=== PATIENT | female | born 1965 | race African-American/Black ===

== ENCOUNTER → 2016-08-28 | Outpatient (CLI) | payer BC ==
[~2016-08-28] MED LIST: DYAZIDE 37.5/251 CAP PO; METFORMIN PO; PRENATAL FORMU1 EAC1 PO; TIROSINT88 MCG PO
--- NOTE | ~2016-08-28 | MR17 ---
[facility] A Service of [facility] RADIOLOGY TEXT RESULTS PATIENT: GEORGIE VUONG LOCATION: [facility] : 63 UNIT #: [id number] AGE: [address]: Magno Whelan II, MD SEX: F ORDER DR: [id number] [facility] [address] [place], [place] [address] [id number] O MR#: [id number] Acc #: [id number] NAME: GEORGIE VUONG : 1965 SEX: F STUDY DATE/TIME: 08/28/2016 10:52 UNIT: [facility] ROOM: STUDY DESCRIPTION: MR Brain WWo Contrast Attending Physician: Magno Whelan II., M.D. Referring Physician: Magno Whelan II., M.D. Ordering Physician: Magno Whelan II., M.D. Primary Care Physician: No Primary Care Physician MRI CENTER REPORT This report is preliminary unless electronic signature is present. EXAM Brain MR with and without contrast, 08/28/16. CLINICAL HISTORY Four-month history of intermittent spells of decreased attentiveness. PROCEDURE Routine brain MR with and without contrast. COMPARISON None. FINDINGS The brain is structurally normal. Brain parenchymal signal is normal with the exception of some minimal nonspecific white matter change. There is no intracranial mass and there is no hydrocephalus or extraaxial fluid collection. Normal flow voids are seen in the cerebral vessels. There is no abnormal enhancement. Bone marrow signal is normal. The extracranial soft tissues are remarkable for a right maxillary sinus air-fluid level. IMPRESSION Fluid in the right maxillary sinus might indicate sinusitis. Minimal nonspecific white matter change. Otherwise, normal brain MRI with and without contrast. Dictated by... Donis Olson M.D. THIS IS AN ELECTRONICALLY VERIFIED REPORT Donis Olson M.D. at 08/30/2016 4:28 PM TEV/pc TD: 08/29/2016 09:58 [facility] A Service of [facility] RADIOLOGY TEXT RESULTS PATIENT: GEORGIE VUONG LOCATION: CM[facility] : 63 UNIT #: [id number] AGE: [address]: Magno Whelan II, MD SEX: F ORDER DR: MIGNON #: [id number] MRI CENTER REPORT Page 1 of 1 COPY
--- NOTE | ~2016-08-28 | EE ---
Unit #: [id number] #: [id number] Patient: GEORGIE VUONG [id number] [address] [address] [id number] O MR#: [id number] NAME: GEORGEI VUONG : 1965 SEX: F STUDY DATE/TIME: UNIT: [facility] ROOM: STUDY DESCRIPTION: EEG Attending Physician: Magno Whelan II., M.D. Referring Physician: Magno Whelan II., M.D. Primary Care Physician: No Primary Care Physician NEURODIAGNOSTICS REPORT EXAM EEG. TECH Fatimah. REASON FOR STUDY Seizures. TECHNICAL INFORMATION This is a routine EEG performed using the standard international 10/20 system with electrode placement. Photic stimulation was performed. Hyperventilation was also performed. REPORT Throughout the entire study the best background rhythm seen is approximately 9 Hz. This rhythm was seen in both posterior head regions symmetrically and does attenuate to eye opening and closure. Photic stimulation was performed which does not appear to elicit any epileptiform abnormalities; however, a good photic driving response was seen. Hyperventilation was also performed which failed to reproduce any abnormal build up. There was no sleep recorded during the EEG. Throughout the entire study there were no electrographic seizures recorded, nor were there any independent epileptiform abnormalities seen. INTERPRRETATION This is a normal awake EEG. A normal EEG does not rule out the possibility of a seizure disorder. Clinical correlation is advised. HILLARY/mo TD: 08/31/2016 12:05 JOB #: [id number] Dictated by... Magno Whelan II., M.D. GWS/nathalia TD: 09/19/2016 16:04 Unit #: [id number] #: [id number] Patient: GEORGIE VUONG JOB #: [id number] NEURODIAGNOSTICS REPORT Page 1 of 1 X NEURODIAGNOSTICS REPORT
[2016-08-28 10:56] LABS: POC - CREATININE 0.97 mg/dL (0.44-1.03); POC - GFR >60.0 mL/min (>60)
== END | disposition home or self-care (01) ==
LOC: CMRI 10:00
PROVIDERS: Psychiatry & Neurology Neurology
DX: R68.89 Other general symptoms and signs (principal); J34.89 Other specified disorders of nose and nasal sinuses
CPT/HCPCS: 70553; 82565; 95816; A9577

== ENCOUNTER → 2016-11-26 | Day surgery (SDC) | payer BC ==
--- NOTE | ~2016-11-26 | OR ---
Unit #: [id number] #: [id number] Patient: GEORGIE VUONG [id number] [address] [place], [place] [address] [id number] O MR#: [id number] NAME: GEORGIE VUONG ROOM: Date of Procedure: 11/26/2016 Admission Date: 11/26/2016 Surgeon: Garett Hirsch M.D. : 1965 Attending Physician: Garett Hirsch M.D. Primary Care Physician: Primary Care Physician No OPERATIVE REPORT PREOPERATIVE DIAGNOSES The patient presented for surveillance colonoscopy. She has family history of colon cancer in both her mom and dad. In fact, her mother with colon cancer and father is a survivor. She also has personal history of colon polyps. PROCEDURES PERFORMED Colonoscopy and polypectomy. POSTOPERATIVE DIAGNOSES 1. Single sessile polyp in the mid descending colon. This was 5 mm in size and was removed using snare polypectomy. 2. Mild sigmoid and descending colon diverticulosis. 3. Rest of the examination up to cecum was normal. The quality of the prep was good. RECOMMENDATIONS 1. Follow up with results of polyp histology. 2. Consider repeat colonoscopy in 5 years. SEDATION USED MAC. DESCRIPTION OF PROCEDURE Following detailed explanation of the potential risks and complications of a colonoscopy, namely perforation, bleeding, and complications related to sedation, the patient was brought to GI lab and laid in the left lateral decubitus position. A digital rectal examination was performed, which was normal. Lubricated tip of the Olympus video colonoscope was inserted through the anus and advanced under direct vision. The scope was advanced and passed up to sigmoid into descending colon. Scant small diverticula were seen scattered in this area. The scope tip was then navigated all the way up to cecum with visualization of the ileocecal valve and the appendiceal orifice. Preparation was excellent with good visualization and photodocumentation was obtained. Successive segments of the colonic mucosa were examined upon withdrawal. A single sessile polyp was noted in the mid descending colon. The latter was removed using snare polypectomy. It was retrieved and sent for histology. It was diminutive about 4 to 5 mm in size. No additional polyps noted. Other than the left-sided diverticula, no other abnormalities were found. The patient did not have any hemorrhoids at anal verge. The scope was then withdrawn and the Unit #: [id number] #: [id number] Patient: GEORGIE VUONG patient returned to the recovery area. She tolerated the procedure without any postprocedure complications. Dictated by.Joy Frances/cari TD: 11/26/2016 11:22 JOB #: [id number] CC: [facility] OPERATIVE REPORT Page 1 of 1 X Garett Hirsch MD X PROCEDURE OPERATIVE NOTE
== END | disposition home or self-care (01) ==
LOC: COPS 08:58
DX: Z12.11 Encounter for screening for malignant neoplasm of colon (principal); D12.4 Benign neoplasm of descending colon; K57.30 Diverticulosis of large intestine without perforation or abscess without bleeding; E11.9 Type 2 diabetes mellitus without complications; I10 Essential (primary) hypertension; E03.9 Hypothyroidism, unspecified; G47.30 Sleep apnea, unspecified; F17.210 Nicotine dependence, cigarettes, uncomplicated; Z86.010 Personal history of colon polyps; Z80.0 Family history of malignant neoplasm of digestive organs; Z79.84 Long term (current) use of oral hypoglycemic drugs; Z79.899 Other long term (current) drug therapy
CPT/HCPCS: 82947; 88305